=== PATIENT | female | born 1960 | race Caucasian/White ===

== ENCOUNTER 2017-05-13 12:17 | Emergency (ER) | payer MEDICAID, OTHER ==
[2017-05-13] MEDS ORDERED: Sodium Chloride 0.9% 1,000 ML IV ONE (13:21)
[2017-05-13 13:41] LABS: BASO # 0.1 K/uL (0.0-0.2); BASO % 0.8 % (0.0-2.0); EOS # 0.1 K/uL (0.0-0.7); EOS % 1.6 % (0.0-4.0); HEMOGLOBIN 15.3 g/dL (11.0-16.0); LYMPH # 0.9 K/uL (1.0-4.3); LYMPH % 10.5 % (20.0-40.0); MEAN CELL VOLUME 89.9 fL (81.0-99.0); MEAN CORPUSCULAR HEMOGLOBIN 29.9 pg (27.0-31.0); MEAN CORPUSCULAR HGB CONC 33.3 g/dL (33.0-37.0); MEAN PLATELET VOLUME 9.6 fL (7.2-11.7); MONO # 0.7 K/uL (0.0-0.8); MONO % 8.9 % (0.0-10.0); NEUT # 6.5 K/uL (1.8-7.0); NEUT % 78.2 % (50.0-75.0); NRBC % 0.1 % (0.0-2.0); RBC 5.1 Mil/uL (3.80-5.20); RED CELL DISTRIBUTION WIDTH 13.8 % (11.5-14.5); WHITE BLOOD COUNT 8.3 K/uL (4.8-10.8)
--- NOTE | 2017-05-13 13:45 | C.PDOC ---
History Of Present Illness Patient is a 57 y/o F presenting with fever today to 101, productive cough with yellow sputum and sore throat. Denies chest pain or shortness of breath. Admits to tobacco use. Time Seen by Provider: 05/13/17 13:12 Chief Complaint (Nursing): Cough, Cold, Congestion Past Medical History Vital Signs: Last Vital Signs Temp 98.3 F 05/13/17 16:34 Pulse 82 05/13/17 16:34 Resp 18 05/13/17 16:34 BP 99/57 L 05/13/17 16:34 Pulse Ox 95 05/13/17 16:34 - Medical History PMH: Anxiety, Arthritis, Asthma, Bronchitis, Cardia Arrhythmia, COPD, Depression , Emphysema, Osteoporosis (right shoulder) Surgical History: Appendectomy Family History: States: Unknown Family Hx - Social History Hx Tobacco Use: Yes Hx Alcohol Use: Yes Hx Substance Use: No - Immunization History Hx Tetanus Toxoid Vaccination: No Hx Influenza Vaccination: No Hx Pneumococcal Vaccination: No Review Of Systems Constitutional: Positive for: Fever, Chills. Negative for: Weight loss ENT: Positive for: Throat Pain. Negative for: Throat Swelling Cardiovascular: Negative for: Chest Pain, Palpitations, Orthopnea, Edema Respiratory: Positive for: Cough. Negative for: Shortness of Breath, SOB with Excertion, Wheezing Gastrointestinal: Negative for: Nausea, Vomiting, Abdominal Pain, Diarrhea, Constipation Genitourinary: Negative for: Dysuria Neurological: Negative for: Weakness, Numbness Psych: Negative for: Anxiety Physical Exam - Physical Exam Appears: Well, Non-toxic, No Acute Distress Skin: Normal Color, Warm, Dry Head: Atraumatic Eye(s): bilateral: Normal Inspection, PERRL, EOMI Throat: No Erythema, No Exudate Neck: Trachea Midline, Supple Chest: Symmetrical Cardiovascular: Rhythm Regular Respiratory: Normal Breath Sounds, No Rales, No Rhonchi, No Wheezing Gastrointestinal/Abdominal: Soft, No Tenderness, No Mass, No Distention Back: Normal Inspection, No CVA Tenderness Extremity: Normal ROM ED Course And Treatment - Laboratory Results Result Diagrams: 05/13/17 13:36 05/13/17 13:36 O2 Sat by Pulse Oximetry: 93 Medical Decision Making Medical Decision Making: EKG shows NSR at 86bpm with left atrial enlargement. No ST changes Cxray shows "Hyperinflation may be seen in setting of COPD. Reticular opacities re- identified throughout bilateral lung camilo, may reflect interstitial changes. Right hilar/ infrahilar prominence without significant interval change appreciated. Biapical pleural thickening." Labs are grossly normal. Strep negative. Vitals are normal in ED but patient reports fever at home. Will dc with zpack due to copd and productive cough with fever. Patient to follow-up with PMD. Patient feels well and reports that she wants to go home. Disposition - Disposition Disposition: HOME/ ROUTINE Disposition Time: 16:04 Condition: GOOD Additional Instructions: Follow-up with PMD within 2 days. Take full course of antibiotics. Return to ED if condition worsens. Stop smoking Prescriptions: Azithromycin 250 mg PO DAILY #4 tablet Benzonatate [Tessalon Perle] 100 mg PO TID PRN #20 capsule PRN Reason: Cough Instructions: How to Stop Smoking (ED), Pharyngitis (ED), COPD (Chronic Obstructive Pulmonary Disease) (ED) Forms: [facility] [facility] ([place]) - Clinical Impression Clinical Impression: COPD (chronic obstructive pulmonary disease), Pharyngitis
[2017-05-13] MEDS ORDERED: Sodium Chloride 0.9% 1,000 ML ONE (13:46)
[2017-05-13 13:58] LABS: ALB/GLOB RATIO 1.1 (1.0-2.1); ALT/SGPT 39 U/L (9-52); AST/SGOT 35 U/L (14-36); BLOOD UREA NITROGEN 11 mg/dL (7-17); GFR AFRICAN-AMERICAN > 60; GFR NON-AFRICAN AMERICAN > 60
[2017-05-13 13:59] LABS: CALCIUM 9.1 mg/dl (8.6-10.4)
[2017-05-13 14:14] LABS: VENOUS BLOOD GAS BASE EXCESS 0.8 mmol/L (0.0-2.0); VENOUS BLOOD GAS PCO2 49 mmHg (40-60); VENOUS BLOOD GAS PO2 31 mm/Hg (30-55); VENOUS BLOOD PH 7.35 (7.32-7.43)
--- NOTE | 2017-05-13 15:40 | RAD ---
HISTORY: cough COMPARISON: Chest x-ray performed 08/06/15 TECHNIQUE: Chest PA and lateral FINDINGS: LUNGS: Hyperinflation may be seen in setting of COPD. Reticular opacities re-identified throughout bilateral lung camilo, may reflect interstitial changes. Right hilar/ infrahilar prominence without significant interval change appreciated. Biapical pleural thickening. Please note that chest x-ray has limited sensitivity for the detection of pulmonary masses. PLEURA: No significant pleural effusion identified. No definite pneumothorax . CARDIOVASCULAR: Heart size appears within normal limits. Atherosclerotic calcifications of the aorta. OSSEOUS STRUCTURES: Degenerative changes. VISUALIZED UPPER ABDOMEN: Unremarkable. OTHER FINDINGS: None. IMPRESSION: No significant interval change appreciated. See above.
[2017-05-13 16:35] VITALS: BP 99/57; PULSE 82; RESP 18; TEMP 98.3
[2017-05-13 17:13] VITALS: O2SAT 93
--- NOTE | 2017-05-14 12:57 | CARD ---
APPROVED REPORT EKG Measurement Heart [id number] <Conclusion> Normal sinus rhythm Possible Left atrial enlargement Borderline ECG
== END 2017-05-13 16:35 | disposition home or self-care (01) ==
LOC: C.ER 12:17
DX: J44.9 Chronic obstructive pulmonary disease, unspecified (principal); J02.9 Acute pharyngitis, unspecified
CPT/HCPCS: 71020; 80053; 82803; 85025; 87070; 87430; 93005; 96374; 99285; J1885; J7040